=== PATIENT | male | born 1945 | race Hispanic/Latino ===

== ENCOUNTER → 2018-10-21 | Outpatient (CLI) | payer OTHER | END | disposition home or self-care (01) | LOC: RAH 12:58 | PROVIDERS: ATTEND Internal Medicine | DX: Z13.6 Encounter for screening for cardiovascular disorders (principal) | CPT/HCPCS: 75571 ==

== ENCOUNTER 2023-11-26 07:41 | Day surgery (SDC) | payer OTHER ==
[2023-11-24 08:44] LABS: BASOPHILS # (AUTO) 0.03 K/uL (0.00-0.20); BASOPHILS % (AUTO) 0.5 % (0.0-5.0); EOSINOPHILS # (AUTO) 0.11 K/uL (0.00-0.70); HEMATOCRIT 38.4 % (42-54); IMMATURE GRANULOCYTE ABSOLUTE 0.04 K/uL (0-1); LYMPHOCYTES # (AUTO) 1.5 K/uL (1.0-4.8); LYMPHOCYTES % (AUTO) 27.3 % (21.0-51.0); MEAN CORPUSCULAR HEMOGLOBIN 32.9 pg (27.0-33.0); MEAN CORPUSCULAR HGB CONC 35.7 g/dL (32.0-36.0); MEAN CORPUSCULAR VOLUME 92.1 fL (79-99); MONOCYTES # (AUTO) 0.5 K/uL (0.1-1.0); MONOCYTES % (AUTO) 9.6 % (3.0-13.0); NEUTROPHILS # (AUTO) 3.4 K/uL (1.8-7.7); NEUTROPHILS % (AUTO) 59.9 % (40.0-77.0); PLATELET COUNT (AUTO) 153 K/uL (130-400); RED BLOOD CELL COUNT(AUTO) 4.17 MIL/uL (4.50-6.20); RED CELL DISTRIBUTION WIDTH 13.4 % (11.0-15.5); WHITE BLOOD COUNT (AUTO) 5.6 K/uL (4.8-10.8)
[2023-11-24 08:48] LABS: CREATININE 0.8 mg/dL (0.5-1.3); POTASSIUM 4.1 mmol/L (3.5-5.1)
[2023-11-24 08:51] LABS: PROTHROMBIN TIME 10.8 SEC (9.6-11.6)
[2023-11-24 08:52] LABS: PARTIAL THROMBOPLASTIN TIME 24.9 SEC (26.3-35.5)
[2023-11-24 09:01] LABS: B-TYPE NATRIURETIC PEPTIDE 9 pg/mL (0-100)
[2023-11-24 09:03] LABS: ADD UA MICROSCOPIC YES; APPEARANCE,URINE CLEAR (CLEAR); BILIRUBIN,URINE NEGATIVE (NEGATIVE); COLOR,URINE YELLOW (YELLOW); GLUCOSE, URINE (UA) >=1000 mg/dL (NEGATIVE); KETONES,URINE NEGATIVE (NEGATIVE); LEUKOCYTE ESTERASE ,URINE 500 Leu/uL (NEGATIVE); NITRATE,URINE NEGATIVE (NEGATIVE); OCCULT BLOOD,URINE NEGATIVE (NEGATIVE); PH,URINE 5.5 (5.0-8.0); PROTEIN,URINE 10 mg/dL (NEGATIVE); UROBILINOGEN,URINE 0.2 mg/dL (0.2-1.0)
[2023-11-24 09:10] LABS: MUCUS,URINE RARE LPF (None Seen); SQUAMOUS EPITHELIAL CELL,UR FEW /HPF (0-2)
[2023-11-24 09:29] VITALS: BP 140/63; PULSE 81; RESP 16; TEMP 97.5
[~2023-11-26] VITALS: Ht 180.3 cm; Wt 108.5 kg
[2023-11-26] VITALS (10 sets, daily range): BP systolic 116–129; BP diastolic 53–71; PULSE 58–70; RESP 12–18; TEMP 97.2–97.9
[~2023-11-26 07:41] MED LIST: APRE30TA5 PO; INSU300I SQ; METO-408 PO; RISA150S2 SQ; SIMV-43 PO; SITA1TBM4 PO; TAMSULOSIN PO
[2023-11-26] MEDS ORDERED: NITROGLYCERIN 50MG VIAL ONE (08:30)
[2023-11-26] MEDS ORDERED: HEParin-NS 1,000 UNIT/500 ML 1,000 ML IV ONE (08:30)
[2023-11-26] MEDS ORDERED: LIDOCAINE HCL 400MG/20ML VIAL ONE (08:30)
[2023-11-26] MEDS ORDERED: IOHEXOL 350 MG/ML 100ML INFUS..BTL IV ONE (08:30)
[2023-11-26] MEDS ORDERED: IOHEXOL-350 50ML VIAL IV ONE (08:33)
[2023-11-26] MEDS ORDERED: BIVALIRUDIN 250 MG/VIAL IV ONE (08:33)
[2023-11-26] MEDS: 0.9%NACL 1000ML 1,000 ML IV ONE (08:52)
[2023-11-26] MEDS ORDERED: ASPI-1197 PO (08:58)
[2023-11-26] MEDS ORDERED: MIDAZOLAM HCL 1 MG/ML 2ML VIAL ONE (09:36)
[2023-11-26] MEDS ORDERED: FENTanyl CITRate PF 50 MCG/1 ML 2ML VIAL ONE (09:36)
[2023-11-26] MEDS ORDERED: GLUCAGON 1MG KIT 1 MG ML IM PRN (10:00)
[2023-11-26] MEDS ORDERED: DEXTROSE 50%-WATER 50 ML DISP.SYRIN IV PRN (10:00)
[2023-11-26] MEDS: INSULIN humuLIN R 100 UNIT/ML 3ML SQ ONE (10:35)
== END 2023-11-26 15:20 | disposition home or self-care (01) ==
LOC: DAH 07:41
PROVIDERS: ATTEND Internal Medicine Cardiovascular Disease
DX: I25.118 Atherosclerotic heart disease of native coronary artery with other forms of angina pectoris (principal); R94.39 Abnormal result of other cardiovascular function study; L40.9 Psoriasis, unspecified; E11.9 Type 2 diabetes mellitus without complications; E78.5 Hyperlipidemia, unspecified; Z79.82 Long term (current) use of aspirin; Z79.899 Other long term (current) drug therapy; Z79.01 Long term (current) use of anticoagulants; Z90.49 Acquired absence of other specified parts of digestive tract; Z98.890 Other specified postprocedural states
CPT/HCPCS: 80048; 83880; 85025; 85610; 85730; 87086; 81001; 36415; 71045; 93005; 93458; 82948 ×2; J1815; C1894; C1760; Q9965; J3010; J3490 ×2; J7030; J2250; J1644; Q9967 ×2; A4215; A6402; A4335; A4222; A4221; A4663; A4216; A4606; A4223 ×3; J0583